=== PATIENT | male | born 1970 | race Caucasian/White ===

== ENCOUNTER 2019-05-20 06:41 | Day surgery (SDC) | payer BC, SELFPAY ==
[2019-05-19 07:43] VITALS: BMI 32.5
--- NOTE | 2019-05-20 07:06 | PM.HPUD ---
H&P update H&P Update: DATE OF SURGERY/PROCEDURE: 05/20/19 DATE H&P PERFORMED: 04/24/19 PLANNED PROCEDURE: Operation Date: 05/20/19 07:30 Proposed Procedures p Colonoscopy(Not Applicable) - Ricki Daly MD Full H&P HPI: PRIMARY INDICATION/DIAGNOSIS FOR SURGICAL PROCEDURE: Family history of colon cancer with diverticulitis PLANNED PROCEDURE: Colonoscopy HPI: Patient was admitted to the hospital couple of months ago with diverticulitis which was managed conservatively. Never had a colonoscopy before. Perinent History: Medical/Surgical History: Medical History (Updated 05/20/19 @ 07:05 by Ricki Daly MD) Diverticulitis (Acute) Family History: Family History (Updated 05/20/19 @ 07:05 by Ricki Daly MD) Other Cancer Family hx of colon cancer Social History: Social History Smoking and tobacco status: never smoked Alcohol intake: never Substance/Drug Use: never Pertinent Exam Findings: PHYSICAL EXAM: alert and oriented x 3 OTHER PERTINENT EXAM FINDINGS: Abdomen: Soft A&P Assessment and plan (1) Diverticulitis: Family history of colon cancer Procedure, risks, benefits and alternatives have been discussed with the patient who wishes to proceed with surgery. Status: Acute Code(s): K57.92 - Diverticulitis of intestine, part unspecified, without perforation or abscess without bleeding
[2019-05-20 07:17] VITALS: BP 133/79; PULSE 70; RESP 18; TEMP 36.7; O2SAT 97
[2019-05-20] MEDS: sodium chloride 0.9% 1,000 ML 30 ML (07:20)
--- NOTE | 2019-05-20 07:46 | ANES.PREANES ---
Pre-Anesthetic Assessment Pre-Anesthetic Assessment: Height/Weight: Height 1.83 m Weight 108.862 kg Temp Pulse Resp BP Pulse Ox 98.1 F 70 18 133/79 97 05/20/19 07:17 05/20/19 07:17 05/20/19 07:17 05/20/19 07:17 05/20/19 07:17 Proposed Procedure: Operation Date: 05/20/19 07:30 Proposed Procedures p Colonoscopy(Not Applicable) - Ricki Daly MD Was Beta Victoriano taken within 24 hours: N/A Last intake: Intake Last Liquid Date 05/19/19 Last Liquid Time 22:00 Last Solid Date 05/18/19 Last Solid Time 18:00 Last Intake: 00:00 Social: Social History: No alcohol and No tobacco Exam: Pre-Anes Outpt Exam: alert, oriented x 3, clear to auscultation bilaterally and regular rate & rhythm Airway: Submandibular: WNL Cervical ROM: WNL MP: 1 Dentition: Full History/ROS: No significant history except as noted and No significant complaints Pulmonary: Pulmonary: None reported CV/HEM: CV/HEM: None reported : : None reported Hepatic: Hepatic: None reported GI: GI: None reported Metabolic: Metabolic: None reported Musc/skel: Musc/skel: None reported Neuropsych: Neuropsych: None reported Anesthetic Plan: ASA status: I Anesthesia: MAC Risk of > 500 ml blood loss (7ml/kg in children): No PFSH Anesthesia PFSH: Medical History (Updated 05/20/19 @ 07:07 by Ricki Daly MD) Diverticulitis (Acute) Surgical History (Updated 05/20/19 @ 07:05 by Ricki Daly MD) Hx of arthroscopy of left knee (Acute) Family History (Updated 05/20/19 @ 07:05 by Ricki Daly MD) Other Cancer Family hx of colon cancer Social History (Updated 05/19/19 @ 07:41 by Erin Huang RN) Smoking and tobacco status: never smoked Alcohol intake: never Substance/Drug Use: never Data Anesthesia Cardiac Studies: No Data to Display
[2019-05-20 08:04] VITALS: BP 120/81; PULSE 75; RESP 16; TEMP 36.1; O2SAT 97
[2019-05-20 08:14] VITALS: BP 108/88; PULSE 71; RESP 18; O2SAT 97
--- NOTE | 2019-05-20 14:43 | ANE.PACU ---
 Inpatient post-anesthesia follow up: Airway intact: Yes Vital signs: Temperature 97.0 F Pulse Rate [Monito r] 71 Respiratory Rate 18 Blood Pressure [Le ft Arm] 108/88 Pulse Oximetry 97 Oxygen Delivery Me thod Room Air Oxygen Flow Rate 3 Fraction of Inspir ed Oxygen Hydration adequate: Yes Nausea and vomiting: No Mental status: Baseline
== END 2019-05-20 08:40 | disposition home or self-care (01) ==
PROVIDERS: Family Provider Family Medicine; Visit Provider Surgery
PROC: 0DJD8ZZ Inspection of Lower Intestinal Tract, Via Natural or Artificial Opening Endoscopic (ICD-10-PCS; CPT 45378; principal; 2019-05-20 07:30)
DX: K57.92 Diverticulitis of intestine, part unspecified, without perforation or abscess without bleeding (principal); Z80.0 Family history of malignant neoplasm of digestive organs; Z87.19 Personal history of other diseases of the digestive system; D12.4 Benign neoplasm of descending colon; K57.30 Diverticulosis of large intestine without perforation or abscess without bleeding; K64.8 Other hemorrhoids
CPT/HCPCS: 12345; 45380; 88305; 96365; J2704; J7030

== ENCOUNTER 2020-07-07 15:46 | Outpatient (CLI) | payer BC, SELFPAY ==
--- NOTE | 2020-07-07 | CT_ITS ---
WS: [id number] CT scan of the abdomen and pelvis with IV contrast. Additional two-dimensional coronal and sagittal r econstruction was performed. 07/07/2020 Clinical Data: HEMATURIA Comparison: None. DLP: 1938.[address] scans at [facility] use at least one of these dose optimization techniques: automat ed exposure control; mA and/or kV adjustment per patient size (includes targeted exams where dose is matched to clinical indication); or iterative reconstruction. Findings: The lower lungs show no nodules, masses or effusions. The liver, spleen, adrenal glands and pancreas are normal. There is a gallstone within the gallbladde r. The kidneys show equal bilateral contrast excretion with no cyst or masses. The abdominal aorta is normal in size with minimal calcification in the wall.. No appendicitis is seen. The stomach and small bowel are unremarkable. There is sigmoid diverticulitis with a probable diverticular abscess. This abscess is contiguous with the bladder and may have penetrated into the bladder. No adenopathy, ascites, mass, obstruction or f ree air is seen. No inguinal hernia is seen. The bones of the lower thorax, lumbar spine, pelvis, and hips are normal. CT/CT abdomen pelvis w con* [id number] Impression: Sigmoid diverticulitis with probable diverticular abscess contiguous with and p ossibly penetrating into the superior aspect of the bladder.
[2020-07-07] MEDS: iohexol 300 mg/mL 100 mL Btl IV (16:07)
== END 2020-07-07 15:47 | disposition home or self-care (01) ==
LOC: RAD 15:51
PROVIDERS: PCP Physician Assistant; Visit Provider Physician Assistant
DX: R31.9 Hematuria, unspecified (principal); K57.32 Diverticulitis of large intestine without perforation or abscess without bleeding
CPT/HCPCS: 74177

== ENCOUNTER → 2020-07-14 11:37 | Day surgery (SDC) | payer BC, SELFPAY ==
[2020-07-14] VITALS (14 sets, daily range): BP systolic 97–134; BP diastolic 56–86; PULSE 63–78; RESP 16–18; TEMP 36.8; O2SAT 96–100; BMI 32.4
[2020-07-14] MEDS: sodium chloride 0.9% 1,000 ML 75 ML IV (12:36)
--- NOTE | 2020-07-14 13:00 | CT_ITS ---
WS: [id number] CT GUIDED DIVERTICULAR ABSCESS ASPIRATION/DRAINAGE CLINICAL INFORMATION: K57.80 - Diverticulitis of intestine, part unspecified, with perforation and ab scess without bleeding COMPARISON: CT July 07, 2020 DLP: 720.91 mGy.cm TECHNIQUE: Recent imaging July 07, 2020 was reviewed. Abscess contacting the bladder has decreased i n size compared to previous examination. Small amount of air in the nondependent portion the bladder suspicious for fistula. This persists on the postdrainage images. The procedure including risk, benefits, and complications were discussed with the patient who agreed to proceed. Using sterile technique, the patient was prepped and draped in the usual sterile fashion. Patient was positioned supine and CT images were obtained through the abdomen. After 1% lidocaine us ing fluoroscopic guidance, a 17-gauge coaxial needle was advanced into the abscess. Approximately 15c cs of bloody purulent fluid was aspirated. Fluid was sent for cultures. Post procedure CT images dem onstrate near resolution of the abscess cavity with residual soft tissue thickening along the bladder . CT/CT drain peritoneum [id number] IMPRESSION: 1. Aspiration of approximately 15 cc bloody purulent fluid from the abscess ca vity which essentially resolved on the postdrainage images. Residual soft tissu e thickening along the dome of the bladder. 2. Suspected fistulous communication with the bladder with a small amount of a ir seen in the nondependent bladder on the pre- and postaspiration images. 3. No immediate complications. Patient was discharged in stable condition.
[2020-07-14 13:14] LABS: INR 0.96 (0.8-1.2)
[2020-07-14] MEDS: midazolam 1 mg/mL INJ 2 mL 2 MG IVP (14:02)
[2020-07-14] MEDS: midazolam 1 mg/mL INJ 2 mL IVP ×2 (14:05→14:11)
[2020-07-14] MEDS: fentaNYL 50 mcg/mL INJ 2mL 25 MCG IVP ×3 (14:06→14:17)
--- NOTE | 2020-07-14 16:32 | PC.NURSE ---
The Doctor changed the dosing for this patient intraprocedurally. The patient received a total of 4 mg versed during the procedure. The Doctor did the same with the fentanyl administration. A total of 125 mcg was given for the procedure. Dayan Arora RN witnessed the administration of versed and fentanyl as stated. Total of 2 mg versed was wasted. Total of 275 mcg fentanyl was wasted.
== END | disposition home or self-care (01) ==
PROVIDERS: PCP Physician Assistant; Visit Provider Radiology Neuroradiology
DX: K57.80 Diverticulitis of intestine, part unspecified, with perforation and abscess without bleeding (principal)
CPT/HCPCS: 49406; 75989; 85610; 87070; 87075; 87077; 87186; 87205; J2250; J3010; J7030

== ENCOUNTER → 2020-07-23 09:41 | Outpatient (BNVA) | payer BC, SELFPAY | PROVIDERS: PCP Physician Assistant; Visit Provider Urology | DX: R39.89 Other symptoms and signs involving the genitourinary system (principal); N32.1 Vesicointestinal fistula; K57.80 Diverticulitis of intestine, part unspecified, with perforation and abscess without bleeding; N30.01 Acute cystitis with hematuria | CPT/HCPCS: 81003 ==

== ENCOUNTER → 2020-07-26 13:50 | Outpatient (BNVA) | payer BC, SELFPAY | PROVIDERS: PCP Physician Assistant; Visit Provider Urology | DX: Z20.822 Contact with and (suspected) exposure to COVID-19 (principal); N32.1 Vesicointestinal fistula | CPT/HCPCS: 87635 ==

== ENCOUNTER 2020-08-02 16:35 | Inpatient (IN) | payer BC, SELFPAY ==
[2020-07-30 09:42] VITALS: BMI 37.3
[2020-08-02] VITALS (21 sets, daily range): BP systolic 108–142; BP diastolic 74–98; PULSE 76–101; RESP 12–25; TEMP 36.1–37.4; O2SAT 94–100
--- NOTE | 2020-08-02 09:31 | SUR.PREOP ---
0930 Pt states unable to drink second bottle of mag citrate due to nausea last night. Dr. Daly at bedside and ordered tap water enema. Approximately 500 mL tap water infused before pt unable to tolerate. Pt up to bedside commode with approx 500 mL clear results out.
--- NOTE | 2020-08-02 09:58 | W.PM.OPSUD ---
Surgery/Procedure H&P Update DATE OF PROCEDURE: August 02, 2020 DATE H&P PERFORMED: 07/09/20 H&P UPDATE INFORMATION: I have reviewed H&P completed within last 30 days, I have examined patient prior to procedure and No changes to prior documentation PREOP DIAGNOSIS: Complicated sigmoid diverticulitis PLANNED PROCEDURE: Operation Date: 08/02/20 11:00 Proposed Procedures p Laparoscopic Sigmoidectomy 70376 N32.1 02549 07660 N32.1(Not Applicable) - Ricki Daly MD s Cystoscopy(Not Applicable) - Yousuf Nice MD s partial Cystectomy(Not Applicable) - Yousuf Nice MD Operation Date: 08/02/20 12:00 Proposed Procedures p Cystoscopy 80445 52945 N32.1(Not Applicable) - Yousuf Nice MD s Partial Cystectomy(Not Applicable) - Yousuf Nice MD
[2020-08-02 10:01] LABS: Basophils # 0.1 10^3/uL (0.0-0.1); Basophils % 0.8 %; Eosinophils # 0.1 10^3/uL (0.0-0.8); Eosinophils % 1.7 %; Hematocrit 50.1 % (42.0-52.0); Hemoglobin 17.2 g/dL (11.7-16.6); Lymphocytes # 2.6 10^3/uL (0.8-4.8); Lymphocytes % 35.1 %; Mean Corpuscular HGB Conc 34.3 g/dL (30.0-36.0); Mean Corpuscular Hemoglobin 31.6 pg (28.0-34.0); Mean Corpuscular Volume 92.1 fL (80-94); Mean Platelet Volume 10.2 fL (7.4-10.4); Monocytes # 0.7 10^3/uL (0.2-0.9); Monocytes % 8.8 %; Neutrophils # 3.97 10^3/uL (1.8-7.7); Neutrophils % 53.2 %; Nucleated Red Blood Cells % 0 %; Platelet Count 278 10^3/cmm (130-400); Red Blood Count 5.44 10^6/uL (4.1-5.3); Red Cell Distribution Width 12.9 % (12.1-15.1); White Blood Count 7.5 10^3/uL (4.0-10.0)
[2020-08-02] MEDS: sodium chloride 0.9% 1,000 ML 30 ML IV (10:01)
--- NOTE | 2020-08-02 10:06 | ANES.PREANE2 ---
Pre-Anesthetic Assessment Pre-Anesthetic Assessment: Height/Weight: Height 1.83 m Weight 124.738 kg Temp Pulse Resp BP Pulse Ox 97.0 F L 92 18 124/84 98 08/02/20 09:08 08/02/20 09:08 08/02/20 09:08 08/02/20 09:08 08/02/20 09:08 Preop Diagnosis: Complicated sigmoid diverticulitis Proposed Procedure: Operation Date: 08/02/20 11:00 Proposed Procedures p Laparoscopic Sigmoidectomy 93142 N32.1 19063 99608 N32.1(Not Applicable) - Ricki Daly MD s Cystoscopy(Not Applicable) - Yousuf Nice MD s partial Cystectomy(Not Applicable) - Yousuf Nice MD Operation Date: 08/02/20 12:00 Proposed Procedures p Cystoscopy 41616 33000 N32.1(Not Applicable) - Yousuf Nice MD s Partial Cystectomy(Not Applicable) - Yousuf Nice MD Familial anesthetic complications: None Was Beta Victoriano taken within 24 hours: N/A Was Clonidine taken within 24 hours: N/A Last intake: Intake Last Liquid Date 08/01/20 Last Liquid Time 22:00 Last Solid Date 08/01/20 Last Solid Time 07:00 Social: Social History: No alcohol and No tobacco Exam: Pre-Anes Outpt Exam: alert, oriented x 3, clear to auscultation bilaterally and regular rate & rhythm Airway: Cervical ROM: WNL MP: 1 Dentition: Full GI: Comments: diverticular perforation Anesthetic Plan: ASA status: 2 Anesthesia: General Risk of > 500 ml blood loss (7ml/kg in children): No Meds/Allergies Current Medications: Current Medications Generic Name Dose Route Start Last Admin Trade Name Freq PRN Reason Stop Dose Admin Sodium Chloride 1,000 mls @ 30 ml s/hr 08/02/20 07:45 08/02/20 10:01 Sodium Chloride 0.9% IV 08/03/20 07:44 30 mls/hr .Q24H ANGEL Administration PFSH Anesthesia PFSH: Medical History (Updated 07/23/20 @ 13:34 by Yousuf Nice MD) [place]-vesical fistula Diverticulitis History of colon polyps Follow-up colonoscopy in 2024 UTI (urinary tract infection) Surgical History Hx of arthroscopy of left knee Status post colonoscopy with polypectomy 05/20/2019: Descending colon: 5 mm sessile polyp removed with cold biopsy forceps Sigmoid colon: Moderate diverticulosis Rectum: Internal hemorrhoids Family History Mother Diabetes Other Cancer Family hx of colon cancer Social History Smoking and tobacco status: never smoked Alcohol intake: never Household members: spouse Marital status: Current occupational status: employed History of recent travel: No Data Anesthesia CBC & Chem 7: 08/02/20 09:50 08/02/20 09:50 Other Labs: Laboratory Results - last 48 hr 08/02/20 09:50 WBC 7.5 RBC 5.44 H Hgb 17.2 H Hct 50.1 MCV 92.1 MCH 31.6 MCHC 34.3 RDW 12.9 Plt Count 278 MPV 10.2 Neut % (Auto) 53.2 Lymph % (Auto) 35.1 [place] % (Auto) 8.8 Eos % (Auto) 1.7 Baso % (Auto) 0.8 Neut # (Auto) 3.97 Lymph # (Auto) 2.6 [place] # (Auto) 0.7 Eos # (Auto) 0.1 Baso # (Auto) 0.1 Nucleated RBC % (auto) 0 Nucleated RBCs # 0.0 Cardiac Studies: No Data to Display
[2020-08-02] MEDS: midazolam 1 mg/mL INJ 2 mL 2 MG IVP (10:11)
[2020-08-02 10:20] LABS: Alanine Aminotransferase 19 U/L (0-41); Albumin Level 3.9 g/dL (3.5-5.2); Alkaline Phosphatase 92 IU/L (40-130); Anion Gap 12.9 (5-19); Aspartate Amino Transferase 22 U/L (0-40); Blood Urea Nitrogen 12 mg/dL (6-20); Calcium 8.8 mg/dL (8.5-10.5); Carbon Dioxide 23 mmol/L (22-29); Chloride 101 mmol/L (98-107); Globulin 4.6 g/dL (1.3-4.6); Glomerular Filtration Rate 70.6 mL/min (90-130); Glucose 111 mg/dL (65-115); Osmolality Calculated 276 mOsm/kg (285-295); Potassium 3.9 mmol/L (3.5-5.1); Sodium 133 mmol/L (136-145); Total Bilirubin 1.3 mg/dL (0.15-1.2); Total Protein 8.5 g/dL (6.6-8.7)
--- NOTE | 2020-08-02 15:35 | PM.OP ---
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 Procedure Done: 1. Partial cystectomy with bladder closure Pathology: Bladder wall in addition to the abscess tissue excised by Dr. Daly Surgeon: Arlet Anesthesia: General Estimated blood loss: See Dr. Daly's note Urine output: Not measured Complications: None Findings: 1. Extensive induration of the posterior peritoneum as well as the bladder wall secondary to fistula formation and adjacent pelvic abscess related to diverticulitis. 2. Portion of the bladder wall anteriorly and at the dome was excised involving the more extensive portions of the severe induration. No evidence of residual fistula after excision of this involved portion of the bladder wall. Condition: stable Disposition: PACU Brief History: Mr. Bashir is a very pleasant 49-year-old white male recently diagnosed with a colovesical fistula and diverticulitis with abscess formation abutting the dome of the bladder. A percutaneous drainage of the abscess was performed with a small amount of fluid obtained. A drain could not be left. Admitted now for partial colectomy, excision of bladder wall involved in the abscess/colovesical fistula. Procedure: The procedure was initiated by Dr. Daly including laparoscopic resection of the bowel involved in the diverticulitis/abscess formation. The abscess had been drained. At this point I became involved in the surgical procedure. Through the same abdominal incision dissection was continued down anteriorly distal to the abscess and the bladder wall was identified. The abscess was then dissected off the bladder. The bladder was entered allowing more clear demarcation of the involved bladder wall. Circumferential excision of the bladder wall involving this extensive area was performed down to healthy mucosa. There was still quite a bit of induration of the bladder wall though extrinsic to the mucosa. The bladder was irrigated. There was no clots or debris noted. Further dissection of the indurated abscess wall was then performed after the boundaries of the bladder excision were defined. Most of the affected tissues were excised and sent for pathologic evaluation. The partial cystectomy site was then closed utilizing 2-3 layers with 3-0 Vicryl for the mucosal muscularis layer and 2-0 Vicryl running sutures for the muscularis/adventitial layer. The closure did involve a lot of inflammatory tissue but appeared to be adequate. Prior to completion of the general surgery portion of the procedure Dr. Daly was able to close with some of the peritoneal/properitoneal fat as well as placement of some omental fat in this area. A drain was recommended as well. After completion of the bladder closure the procedure was turned over to Dr. Daly for completion of his portion. Please see his dictation under separate cover.
[2020-08-02] MEDS: fentaNYL 50 mcg/mL INJ 2mL IVP (15:38)
--- NOTE | 2020-08-02 15:43 | PM.OP ---
Operative Report Date of procedure: August 02, 2020 Pre-op Diagnosis: Perforated sigmoid diverticulitis with colovesical fistula Symptomatic 2 cm umbilical hernia Post-op Findings: 1. Perforated sigmoid diverticulitis with colovesical fistula 2. Intra-abdominal abscess 3. 2 cm umbilical hernia Procedure Done: 1. Laparoscopic takedown of splenic flexure 2. Laparoscopic sigmoid colectomy with stapled 29 mm EEA anastomosis 3. Proctoscopy 4. Open repair of umbilical hernia 5. Excision of intra-abdominal abscess 6. Partial cystectomy -refer to Dr. Nice's note Specimens removed/disposition: 1. Sigmoid colon, stapled end distal 2. Proximal anastomosis donut 3. Distal anastomosis donut 4. Bladder wall 5. Intra-abdominal abscesses Surgeon: Ricki Daly Anesthesia: General Estimated blood loss (mL): 100 IV fluids (mL): 1,700 Urine output (mL): 100 Condition: stable Disposition: PACU Procedure: The patient was taken to the operating room, intubated under general anesthesia after IV antibiotic had been administered. The patient was placed in modified lithotomy position with shoulder support and the James catheter was placed. The rectum was irrigated with diluted Betadine using red rubber catheter. The abdomen and the perineum was prepped and draped in a sterile manner. Using a 15 blade, a midline infraumbilical incision was made and using open Dunlap technique the peritoneal cavity was entered through the 2 cm umbilical hernia, 12 mm port was placed and 15 mm of pneumoperitoneum was created. A 10 mm 30? scope was then introduced. 5 mm ports were placed in the left lower quadrant and in the right upper quadrant under direct visualization in the midclavicular line and and a 12 mm port was placed in the right lower quadrant. Examination of the colon revealed a a inflammatory phlegmon in the sigmoid colon adherent to the anterior abdominal wall. The patient was placed in steep Trendelenburg position and rotated to the right in order to place a small bowel loops in the right upper quadrant. The transverse colon was retracted superiorly. The inferior mesenteric vein was identified and adjacent ligament of Treitz and the retroperitoneal plane was entered medial to the IMV and mobilization of the splenic flexure as well as the descending colon was performed to the retroperitoneal avascular plane. The phrenocolic and renal colic ligaments were divided using LigaSure and the anterior leaflet of the omentum was divided the distal one third of the transverse colon to enter the lesser sac and mobilized the splenic flexure. The line of Toldt was opened along the descending colon to mobilize it completely. There were adhesions of the sigmoid colon to the abdominal wall which were taken down. The thickened sigmoid mesocolon was divided from the junction of the descending colon up to the peritoneal reflection on the rectum. There were multiple arterial bleeders which were controlled with LigaSure staying close to the sigmoid colon. 2 loads of 45 mm blue load [place] NERI stapler was introduced through the right lower quadrant port to divide the rectum distally. Examination of suprapubic area revealed take care and abscess adherent to the abdominal wall. The posterior rectus sheath was opened and the abdominal abscess was dissected free from the rectus muscle up to the dome of the bladder. 20 cc of saline mixed with 20 cc of Exparel mixed with 20cc of 0.5% Marcaine was infiltrated bilaterally in the midclavicular line for TAP block under laparoscopic visualization. At this point it appeared that the descending colon reached up to the rectum and 7 suprapubic incision was made, subcutaneous tissue, linea alba and peritoneum divided using electrocautery, pneumoperitoneum was released and a wound protector was placed and the divided sigmoid colon was exteriorized.A noncrushing bowel clamps were placed in the descending colon and an Autosuture pursestring was placed and the colon was divided and the specimen removed from the operating field. Serial anal dilators were used and it was decided to proceed with the 29 mm EEA stapler. The anvil of the EEA stapler was introduced into the descending colon and tied down. Dr. Nice joined me at this part of the case and the previously freed up abdominal wall abscess was dissected from the dome of the bladder and sent to pathology. The dome of the bladder was opened and colovesical fistula identified. Please refer to his notes for further details The colon was introduced into the peritoneal cavity and the pneumoperitoneum was recreated. The anus was digitally dilated and the EEA stapler was introduced through the anal canal and the trocar passed posterior to the previously created staple line and attached to the anvil after ensuring that there was no twisting of the mesentery. The EEA stapler was fired to create the stapled 29 mm end-to-end anastomosis and 2 intact doughnuts were retrieved which were sent as proximal margin and distal margin. A colonoscope was introduced and passed beyond the anastomosis after submerging the anastomosis under saline in the pelvis. The air leak test was negative. There was no significant bleeding noted from the staple line. The colonoscope was withdrawn. All 4 ports were removed under direct visualization and the fascia the midline was closed using #1 loop PDS. The fascia of the right lower quadrant port was closed using [id number] 0 Vicryl suture. The hernia sac at the umbilicus was excised and the hernia defect measured about 2 cm. This was closed with [id number] 0 Vicryl suture. A 10 flat ASHLEY drain introduced through the left lower quadrant port was placed anterior to the bladder as extending into the pelvis and attached to bulb suction and sutured with 3-0 Prolene suture. The skin was closed with jazmine and covered with sterile dressings. The patient was subsequently extubated and transferred to recovery room with a James catheter in place.
[2020-08-02] MEDS: HYDROmorphone 1 mg/mL INJ 1 mL 0.5 MG IVP (15:52)
--- NOTE | 2020-08-02 15:59 | SUR.PHASEI ---
PT AWAKE ALERT C/O OF PAIN OF 9 EARLIER SEE MEDS GIVEN PT DOZING OFF AND ON NOW, AWAKES EASILY, VSS ABD SOFT WITH 4 SITES WITH OPSITE, AND ONE SITE WITH DRAIN SPONGE, WITH DRAIN COMPRESSED. SMALL AMT OF PINK CLEAR DRAINAGE NOTED., PENA TO DD WITH RED CLEAR URINE NOTED TO TUBING AND BAT, NO CLOTS NOTED STATLOCK TO RT THIGH, BILAT SCDS ON .
--- NOTE | 2020-08-02 16:13 | SUR.PHASEI ---
1605 ATTEMPTING TO GIVE REPORT TO FLOOR PT DOZING OFF AND ON DRESSING TO ABD 5 SITES UNCHANGED URINE LT RED CLEAR TO TUBING AND BAG.
--- NOTE | 2020-08-02 17:04 | ANE.PACU2 ---
Inpatient post-anesthesia follow up: Airway intact: Yes Vital signs: Temperature 97.5 F Pulse Rate 88 Respiratory Rate 17 Blood Pressure 136/85 Pulse Oximetry 94 Oxygen Delivery Me thod Room Air Oxygen Flow Rate 6 Fraction of Inspir ed Oxygen Hydration adequate: Yes Nausea and vomiting: No Pain level: 3 Mental status: Baseline
[2020-08-02] MEDS: famotidine 20 mg/2 mL INJ IVP (17:41)
[2020-08-02] MEDS: sennosides-docusate Tablet 1 TAB PO (17:41)
[2020-08-02] MEDS: D5-NS 0.45% + KCL 20 mEq 20 MEQ/1,000 ML BAG 100 MEQ IV (17:43)
[2020-08-02] MEDS: morphine 4 mg/mL SDV 1 mL 3 MG IVP (17:43)
[2020-08-02] MEDS: ondansetron 2 mg/ML SDV 2 mL 4 MG IVP (18:08)
[2020-08-02] MEDS: HYDROcodone-acetaminophen 5-325 mg Tablet 1 TAB PO (21:40)
[2020-08-03] VITALS (8 sets, daily range): BP systolic 123–130; BP diastolic 78–90; PULSE 88–114; RESP 17–18; TEMP 36.7–37.3; O2SAT 94–97
[2020-08-03] MEDS: D5-NS 0.45% + KCL 20 mEq 20 MEQ/1,000 ML BAG 100 MEQ IV (03:06)
[2020-08-03 03:11] LABS: Basophils % 0.1 %; Hematocrit 43.5 % (42.0-52.0); Hemoglobin 14.6 g/dL (11.7-16.6); Lymphocytes # 1.8 10^3/uL (0.8-4.8); Lymphocytes % 12.6 %; Mean Corpuscular HGB Conc 33.6 g/dL (30.0-36.0); Mean Corpuscular Hemoglobin 31.3 pg (28.0-34.0); Mean Corpuscular Volume 93.1 fL (80-94); Mean Platelet Volume 10.6 fL (7.4-10.4); Monocytes # 1.1 10^3/uL (0.2-0.9); Monocytes % 7.7 %; Neutrophils # 11.05 10^3/uL (1.8-7.7); Nucleated Red Blood Cells % 0 %; Platelet Count 274 10^3/cmm (130-400); Red Blood Count 4.67 10^6/uL (4.1-5.3)
[2020-08-03 03:31] LABS: Anion Gap 13.8 (5-19); Blood Urea Nitrogen 14 mg/dL (6-20); Calcium 8.1 mg/dL (8.5-10.5); Carbon Dioxide 22 mmol/L (22-29); Chloride 103 mmol/L (98-107); Glomerular Filtration Rate 70.6 mL/min (90-130); Glucose 211 mg/dL (65-115); Osmolality Calculated 285 mOsm/kg (285-295); Potassium 4.8 mmol/L (3.5-5.1); Sodium 134 mmol/L (136-145)
[2020-08-03] MEDS: famotidine 20 mg/2 mL INJ IVP ×2 (04:52→17:21)
[2020-08-03] MEDS: HYDROcodone-acetaminophen 5-325 mg Tablet 1 TAB PO (04:55)
--- NOTE | 2020-08-03 08:08 | PC.NURSE ---
patient rates pain to abd 6/10, patient refuses pain medication at this time.
[2020-08-03] MEDS: sennosides-docusate Tablet 1 TAB PO ×2 (08:38→17:21)
[2020-08-03] MEDS: enoxaparin 40 mg/0.4 mL Syringe SUBCUT (08:38)
--- NOTE | 2020-08-03 09:49 | P.PN_ITS ---
Subjective Subjective: Interval history: Patient overall doing well, denies any nausea or vomiting, no flatus or BM, pain is reasonably controlled Vitals/I&O/Wt Last Vital Signs Temp 98.9 F 08/03/20 07:43 Pulse 88 08/03/20 07:43 Resp 17 08/03/20 07:43 BP 123/84 08/03/20 07:43 Pulse Ox 96 08/03/20 07:43 08/02/20 08/03/20 08/03/20 22:59 06:59 14:59 Intake Total 1810 / 2848.333 988.333 / 2848.333 Output Total 520 / 1050 530 / 1050 Balance 1290 / 1798.333 458.333 / 1798.333 Physical Exam Narrative: EXAM NARRATIVE: Abdomen: Soft, tender, mildly distended, dressings mildly saturated, James catheter in place Urinary Catheter Management^: James: Cath Placed During This Visit: yes Urinary Catheter Date of Insertion: 08/02/20 Urinary Catheter Time of Insertion: 10:55 Data : 08/03/20 02:43 08/03/20 02:43 A&P Assessment and plan (1) Status post laparoscopic-assisted sigmoidectomy: Status post laparoscopic sigmoid colectomy for colovesical fistula and excision of intra-abdominal abscess with postop ileus Decrease IV fluids to 30 cc/h Start clear liquid diet Ambulate ad geovany. Daily labs Continue IV Kefzol and Flagyl due to intra-abdominal abscess, colovesical fistula and significant inflammation noted during surgery Incentive spirometry, wean to room air Pepcid for GI prophylaxis Lovenox SCD for DVT prophylaxis Patient will need greater than 2 nights of inpatient stay to ensure resolution of ileus and to rule out any postop complications. Status: Acute (2) H/O partial cystectomy: James to stay in for 2 weeks until follow-up with Dr. Nice Change to leg bag Status: Acute Attestations Medical Necessity Statement*: Status post sigmoid colectomy with postop ileus Coding Level of Care Code Acute Water Pollution Scientist for g Fwd Diagnoses Status post laparoscopic-assisted sigmoidectomy Z90.49 H/O partial cystectomy Z90.6
[2020-08-03] MEDS: metroNIDAZOLE IV 500 MG/100 ML PREMIX 100 MG IV ×2 (11:27→17:28)
[2020-08-03] MEDS: D5-NS 0.45% + KCL 20 mEq 20 MEQ/1,000 ML BAG 30 MEQ IV (17:26)
--- NOTE | 2020-08-03 18:16 | PC.NURSE ---
patient is not passing gas yet
[2020-08-03] MEDS: ondansetron 2 mg/ML SDV 2 mL 4 MG IVP (22:14)
[2020-08-03] MEDS: promethazine 25 mg/mL SDV 1 mL 12.5 MG IM (23:18)
[2020-08-04] VITALS (8 sets, daily range): BP systolic 124–136; BP diastolic 77–89; PULSE 87–124; RESP 18; TEMP 36.5–36.9; O2SAT 95–97
--- NOTE | 2020-08-04 00:16 | PC.RESP ---
Nausea Notified Dr. Daly of patients persistent nausea after administration of zofran. Order received for IM Promethazine 12.5mg q8 hours prn.
[2020-08-04] MEDS: HYDROcodone-acetaminophen 5-325 mg Tablet 1 TAB PO ×2 (01:46→21:36)
[2020-08-04] MEDS: metroNIDAZOLE IV 500 MG/100 ML PREMIX 100 MG IV ×3 (01:47→17:21)
[2020-08-04 02:42] LABS: Basophils % 0.3 %; Hematocrit 43.3 % (42.0-52.0); Hemoglobin 14.5 g/dL (11.7-16.6); Lymphocytes # 2.2 10^3/uL (0.8-4.8); Lymphocytes % 15.1 %; Mean Corpuscular HGB Conc 33.5 g/dL (30.0-36.0); Mean Corpuscular Volume 92.5 fL (80-94); Mean Platelet Volume 10.6 fL (7.4-10.4); Monocytes # 1.3 10^3/uL (0.2-0.9); Monocytes % 8.7 %; Neutrophils # 11.24 10^3/uL (1.8-7.7); Neutrophils % 75.5 %; Nucleated Red Blood Cells % 0 %; Platelet Count 250 10^3/cmm (130-400); Red Blood Count 4.68 10^6/uL (4.1-5.3); Red Cell Distribution Width 12.9 % (12.1-15.1); White Blood Count 14.9 10^3/uL (4.0-10.0)
[2020-08-04] MEDS: ondansetron 2 mg/ML SDV 2 mL 4 MG IVP (02:53)
[2020-08-04 03:01] LABS: Anion Gap 12.9 (5-19); Blood Urea Nitrogen 13 mg/dL (6-20); Calcium 8.1 mg/dL (8.5-10.5); Carbon Dioxide 23 mmol/L (22-29); Chloride 100 mmol/L (98-107); Creatinine Clr Calc Pharmacy 119.2293; Glomerular Filtration Rate 78.8 mL/min (90-130); Glucose 148 mg/dL (65-115); Osmolality Calculated 277 mOsm/kg (285-295); Potassium 3.9 mmol/L (3.5-5.1); Sodium 132 mmol/L (136-145)
[2020-08-04] MEDS: morphine 4 mg/mL SDV 1 mL 3 MG IVP (04:46)
[2020-08-04] MEDS: famotidine 20 mg/2 mL INJ IVP ×2 (04:48→17:21)
[2020-08-04] MEDS: sennosides-docusate Tablet 1 TAB PO ×2 (08:54→17:21)
[2020-08-04] MEDS: enoxaparin 40 mg/0.4 mL Syringe SUBCUT (08:54)
--- NOTE | 2020-08-04 09:33 | PC.NURSE ---
ROUNDING WITH DR SAMUELS PT UP IN CHAIR COMPLAINING OF CRAMPING PAIN - DR SAMUELS NOTIFIED PER THIS NURSE OF INCREASED HEART RATE WHEN UP - ORDERS REC'D
[2020-08-04] MEDS: sodium chloride 0.9% 500 ML IV ×2 (10:20→11:01)
--- NOTE | 2020-08-04 10:50 | PM.PN ---
Subjective Subjective: Interval history: Patient had cramping abdominal pain last night, no flatus or BM. No vomiting, had some nausea but has been belching a lot. Patient has been tachycardic when he ambulates but otherwise stable. He has been afebrile Vitals/I&O/Wt Last Vital Signs Temp 98.5 F 08/04/20 08:00 Pulse 124 H 08/04/20 08:00 Resp 18 08/04/20 08:00 BP 136/86 08/04/20 08:00 Pulse Ox 97 08/04/20 08:00 08/03/20 08/04/20 08/04/20 22:59 06:59 14:59 Intake Total 311.667 / 2170.000 150 / 2170.000 Output Total 520 / 1295 450 / 1295 150 / 150 Balance -208.333 / 875.000 -300 / 875.000 -150 / -150 Physical Exam Narrative: EXAM NARRATIVE: Abdomen: Soft, distended, minimally tender, dressings mildly saturated, ASHLEY drain is serosanguineous James: Dark urine Urinary Catheter Management^: James: Cath Placed During This Visit: yes Urinary Catheter Date of Insertion: 08/02/20 Urinary Catheter Time of Insertion: 10:55 Data : 08/04/20 02:12 08/04/20 02:12 A&P Assessment and plan (1) Status post laparoscopic-assisted sigmoidectomy: Status post laparoscopic sigmoid colectomy for colovesical fistula and excision of intra-abdominal abscess with postop ileus Increase IV fluids 200 cc/h after 5 cc bolus Start clear liquid diet, limit oral intake Ambulate ad geovany. Daily labs Continue IV Kefzol and Flagyl due to intra-abdominal abscess, colovesical fistula and significant inflammation noted during surgery Incentive spirometry, wean to room air Pepcid for GI prophylaxis Lovenox SCD for DVT prophylaxis Patient will need greater than 2 nights of inpatient stay to ensure resolution of ileus and to rule out any postop complications. Status: Acute (2) H/O partial cystectomy: James to stay in for 2 weeks until follow-up with Dr. 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
[2020-08-04] MEDS: D5-NS 0.45% + KCL 20 mEq 20 MEQ/1,000 ML BAG 100 MEQ IV (17:21)
--- NOTE | 2020-08-04 17:54 | PC.NURSE ---
END OF SHIFT SUMMARY CURRENTLY RESTING IN BED AFTER SPENDING MOST OF THE DAY IN THE CHAIR - PT AMBULATED APPROX 10 LAPS - ESAU WELL - STATES HE DOES FEEL BETTER THAN THIS AM - IV REMAINS PATENT TO RIGHT ARM VIA PUMP - ABD JANICE WITH [facility] INTACT/CLEAN/DRY - ASHLEY NOTED TO HAVE DRAINAGE SPONGE TO SITE WITH APPROX 150 ML OUT FOR THIS NURSE SHIFT X1 BOLUS GIVEN THIS AM - PENA WITH APPROX 250 DARK URINE NOTED - DR SAMUELS ON FLOOR AND AWARE - BLE SCD'S IN PLACE - PAIN HAS BEEN WELL CONTROLLED THROUGHOUT SHIFT - PT UNDERSTANDS TO PROCEED SLOWLY WITH CLEAR LIQUID DIET -
[2020-08-05] VITALS: BP 110/69; PULSE 84; RESP 18; TEMP 36.9; O2SAT 97
[2020-08-05 02:55] LABS: Basophils # 0.1 10^3/uL (0.0-0.1); Basophils % 0.5 %; Eosinophils % 0.3 %; Hematocrit 35.2 % (42.0-52.0); Hemoglobin 11.9 g/dL (11.7-16.6); Lymphocytes # 2.9 10^3/uL (0.8-4.8); Lymphocytes % 26.4 %; Mean Corpuscular HGB Conc 33.8 g/dL (30.0-36.0); Mean Corpuscular Hemoglobin 31.2 pg (28.0-34.0); Mean Corpuscular Volume 92.4 fL (80-94); Mean Platelet Volume 10.3 fL (7.4-10.4); Monocytes # 1.1 10^3/uL (0.2-0.9); Monocytes % 10.1 %; Neutrophils # 6.91 10^3/uL (1.8-7.7); Neutrophils % 62.3 %; Nucleated Red Blood Cells % 0 %; Platelet Count 210 10^3/cmm (130-400); Red Blood Count 3.81 10^6/uL (4.1-5.3); Red Cell Distribution Width 13.1 % (12.1-15.1); White Blood Count 11.1 10^3/uL (4.0-10.0)
[2020-08-05 03:20] LABS: Blood Urea Nitrogen 15 mg/dL (6-20); Calcium 7.8 mg/dL (8.5-10.5); Carbon Dioxide 26 mmol/L (22-29); Chloride 103 mmol/L (98-107); Glucose 125 mg/dL (65-115); Osmolality Calculated 282 mOsm/kg (285-295); Sodium 135 mmol/L (136-145)
[2020-08-05] MEDS: metroNIDAZOLE IV 500 MG/100 ML PREMIX 100 MG IV ×3 (03:55→18:07)
[2020-08-05 04:00] VITALS: BP 107/70; PULSE 76; RESP 18; TEMP 36.6; O2SAT 98
[2020-08-05] MEDS: famotidine 20 mg/2 mL INJ IVP ×2 (06:02→18:08)
[2020-08-05 08:00] VITALS: BP 122/81; PULSE 89; RESP 17; TEMP 36.8; O2SAT 98
[2020-08-05] MEDS: sennosides-docusate Tablet 1 TAB PO ×2 (08:14→18:08)
[2020-08-05] MEDS: enoxaparin 40 mg/0.4 mL Syringe SUBCUT (08:14)
--- NOTE | 2020-08-05 09:08 | P.PN_ITS ---
Subjective Subjective: Interval history: She had a bowel movement today and passing flatus, no nausea or vomiting, pain is well controlled Vitals/I&O/Wt Last Vital Signs Temp 98.2 F 08/05/20 08:00 Pulse 89 08/05/20 08:00 Resp 17 08/05/20 08:00 BP 122/81 08/05/20 08:00 Pulse Ox 98 08/05/20 08:00 08/04/20 08/05/20 08/05/20 22:59 06:59 14:59 Intake Total 650 / 3391.667 2150 / 3391.667 480 / 480 Output Total 280 / 1030 600 / 1030 100 / 100 Balance 370 / 2361.667 1550 / 2361.667 380 / 380 Physical Exam Narrative: EXAM NARRATIVE: Abdomen: Soft, minimally distended, minimally tender, incisions clean dry and intact, ASHLEY drain output is serosanguineous Urinary Catheter Management^: James: Cath Placed During This Visit: yes Urinary Catheter Date of Insertion: 08/02/20 Urinary Catheter Time of Insertion: 10:55 Data : 08/05/20 02:29 08/05/20 02:29 A&P Assessment and plan (1) Status post laparoscopic-assisted sigmoidectomy: Status post laparoscopic sigmoid colectomy for colovesical fistula and excision of intra-abdominal abscess with postop ileus DC IV fluids Advance to full liquid diet Ambulate ad geovany. Daily labs Continue IV Kefzol and Flagyl due to intra-abdominal abscess, colovesical fistula and significant inflammation noted during surgery Incentive spirometry, wean to room air Pepcid for GI prophylaxis Lovenox SCD for DVT prophylaxis Patient will need greater than 2 nights of inpatient stay to ensure resolution of ileus and to rule out any postop complications, plan for discharge tomorrow. Status: Acute (2) H/O partial cystectomy: James to stay in for 2 weeks until follow-up with Dr. 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
[2020-08-05] MEDS: HYDROcodone-acetaminophen 5-325 mg Tablet 1 TAB PO ×2 (10:17→18:07)
[2020-08-05 11:57] VITALS: BP 115/78; PULSE 88; RESP 18; TEMP 36.6; O2SAT 98
[2020-08-05 15:57] VITALS: BP 119/82; PULSE 87; RESP 17; TEMP 37.1; O2SAT 98
[2020-08-05 19:24] VITALS: BP 109/69; PULSE 83; RESP 18; TEMP 36.7; O2SAT 96
[2020-08-06] VITALS (7 sets, daily range): BP systolic 105–122; BP diastolic 67–79; PULSE 76–91; RESP 17–20; TEMP 36.4–37; O2SAT 99–100
[2020-08-06] MEDS: metroNIDAZOLE IV 500 MG/100 ML PREMIX 100 MG IV ×2 (04:05→09:02)
[2020-08-06] MEDS: famotidine 20 mg/2 mL INJ IVP (05:02)
[2020-08-06] MEDS: sennosides-docusate Tablet 1 TAB PO (08:55)
[2020-08-06] MEDS: enoxaparin 40 mg/0.4 mL Syringe SUBCUT (08:55)
--- NOTE | 2020-08-06 16:28 | P.PN_ITS ---
Subjective Subjective: Interval history: Patient tolerating full liquid diet, multiple bowel movements, no nausea or vomiting Vitals/I&O/Wt Last Vital Signs Temp 98.1 F 08/06/20 16:00 Pulse 83 08/06/20 16:00 Resp 17 08/06/20 16:00 BP 122/79 08/06/20 16:00 Pulse Ox 99 08/06/20 16:00 08/06/20 08/06/20 08/06/20 06:59 14:59 22:59 Intake Total 210 / 1230 150 / 150 Output Total 415 / 695 40 / 165 125 / 165 Balance -205 / 535 110 / -15 -125 / -15 Physical Exam Narrative: EXAM NARRATIVE: Abdomen: Soft, nondistended, minimally tender, incisions healing well, ASHLEY drain output is serosanguineous which was discontinued Urinary Catheter Management^: James: Cath Placed During This Visit: yes Urinary Catheter Date of Insertion: 08/02/20 Urinary Catheter Time of Insertion: 10:55 Data : 08/05/20 02:29 08/05/20 02:29 A&P Assessment and plan (1) Status post laparoscopic-assisted sigmoidectomy: Status post laparoscopic sigmoid colectomy for colovesical fistula and excision of intra-abdominal abscess with postop ileus which has resolved DC home today Status: Acute (2) H/O partial cystectomy: James to stay in for 2 weeks until follow-up with Dr. 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
--- NOTE | 2020-08-06 16:30 | P.DS_ITS ---
Discharge Providers Date of Admission: 08/02/20 16:35 Date of Discharge: August 06, 2020 Attending Provider at Admission: Ricki Daly MD Attending Provider at Discharge: Ricki Daly MD Primary Care Provider: Ivanna Henson Diagnoses at Discharge Discharge Diagnosis (1) Status post laparoscopic-assisted sigmoidectomy: Status: Acute (2) H/O partial cystectomy: Status: Acute Reason for Visit Reason for Visit: Vesicointestinal fistula Hospital Course Hospital Course This is a 49-year-old male who underwent laparoscopic-assisted sigmoid colectomy with partial cystectomy for colovesical fistula. By postop day 2 patient had return of bowel function and by day 4 he had regular bowel movements. At time of discharge he was tolerating a liquid diet, ambulating and pain controlled with oral pain medications. His vital signs are stable and his incision is clean dry and intact. His ASHLEY drain has been discontinued and he had a James catheter which was to be left in for couple of weeks until follow-up with Dr. Sachi pace Physical Exam Urinary Catheter Management^: James: Cath Placed During This Visit: yes Urinary Catheter Date of Insertion: 08/02/20 Urinary Catheter Time of Insertion: 10:55 Discharge Data Data Completed and Pending: Pending at discharge Category Date Time Status Pathology: Surgic al [PTH] Routine Pth 08/02/20 15:33 Received Vitals: Last Vital Signs Temp 98.1 F 08/06/20 16:00 Pulse 83 08/06/20 16:00 Resp 17 08/06/20 16:00 BP 122/79 08/06/20 16:00 Pulse Ox 99 08/06/20 16:00 Discharge Plan Discharge Condition: Stable Prescriptions: New hydrocodone-acetaminophen 5-325 mg tablet 1 tab PO Q6H PRN (Reason: pain) Qty: 20 RF: 0 levofloxacin 750 mg tablet 750 mg PO DAILY 5 Days RF: 0 metronidazole [Flagyl] 500 mg tablet 500 mg PO Q8H 5 Days Qty: 15 RF: 0 ondansetron HCl [Zofran] 4 mg tablet 4 mg PO Q6H PRN (Reason: nausea and vomiting) Qty: 20 RF: 0 sennosides-docusate sodium [Senna with Docusate Sodium] 8.6-50 mg tablet 1 tab-cap PO BID Qty: 30 RF: 0 Discontinued erythromycin 500 mg tablet 500 mg PO DAILY Qty: 3 RF: 0 neomycin 500 mg tablet 1 g PO DAILY Qty: 6 RF: 0 levofloxacin 750 mg tablet 750 mg PO Q24H 10 Days Qty: 14 RF: 0 metronidazole [Flagyl] 500 mg tablet 500 mg PO Q8H 14 Days Qty: 42 RF: 0 Discharge Orders: Discharge Order (Routine); Ordered 08/06/20 Ordered By: Ricki Daly Referrals: Yousuf Nice MD [Physician] - 2 weeks (s/p partial cystectomy) Ricki Daly MD [Physician] - 08/17/20 Discharge Diet: GI Soft Discharge Activity: Resume usual activity Activity Restrictions/Additional Instructions: 1. Up and walking as tolerated. 2. Ok to shower in 48 hours after surgery. 3. Keep incision clean and dry 4. Do not lift more than 10 pounds. 5. Do not operate heavy machinery or drive while using pain medications. 6. Advised to return to ER or contact my office if there are any signs of infection like, increasing pain, fevers, chills, redness or drainage of pus. Discharge Attestations Time Spent in Discharge Care*: less than 30 min Quality Metrics Clinical Quality Measures During this hospital stay, did patient experience: None Coding Level of Care Code Acute Chg FW DC note Diagnoses Status post laparoscopic-assisted sigmoidectomy Z90.49 H/O partial cystectomy Z90.6
== END 2020-08-06 17:30 | disposition home or self-care (01) | DRG 330 ==
LOC: MEDSURG 19:07
PROVIDERS: Urology; Admitting Provider Surgery; PCP Physician Assistant; Visit Provider Surgery
PROC: 0DTN4ZZ Resection of Sigmoid Colon, Percutaneous Endoscopic Approach (ICD-10-PCS; CPT 44204; principal; 2020-08-02 10:40)
PROC: 0TBB4ZZ Excision of Bladder, Percutaneous Endoscopic Approach (ICD-10-PCS; 2020-08-02 10:40)
DX: K57.20 Diverticulitis of large intestine with perforation and abscess without bleeding (principal); N32.1 Vesicointestinal fistula; Z87.440 Personal history of urinary (tract) infections; K42.9 Umbilical hernia without obstruction or gangrene
CPT/HCPCS: 36415; 80048; 80053; 85025; 88304; 88305; 88309; 96372; 96374; 97116; 97161; C9290; J0690; J1100; J1170; J1650; J2250; J2270; J2405; J2550; J2704; J2710; J3010; J3490; J7030; J7040; S0030

== ENCOUNTER 2020-08-09 16:13 | Emergency (ER) | payer BC, SELFPAY ==
[2020-08-09 15:30] VITALS: BP 138/83; PULSE 75; RESP 16; TEMP 36.5; O2SAT 100; BMI 32.9
--- NOTE | 2020-08-09 15:38 | ECG_ITS ---
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 Measurements Intervals [place] Rate: 75 P: 68 MO: 161 QRS: -25 QRSD: 89 T: 31 QT: 394 QTc: 441 Interpretive Statements SINUS RHYTHM BORDERLINE LEFT AXIS DEVIATION [QRS AXIS < -20] POSSIBLE RIGHT VENTRICULAR CONDUCTION DELAY [RSR (QR) IN V1/V2] Compared to ECG 01/11/2019 02:26:43 T-wave abnormality no longer present Electronically Signed On 08-10-2020 1:13:03 CDT by Giovany Bravo M.D. [email or web address]
--- NOTE | 2020-08-09 15:38 | ED_ITS ---
Documented by User: Preston Love DO 08/10/20 06:02 HPI - Chest Pain General: Chief Complaint: Chest Pain Stated Complaint: chest pain Time Seen by Provider: 08/09/20 18:08 History of Present Illness: HPI narrative: 49-year-old male who recently underwent a sigmoid colon resection. He had had diverticulitis a couple of times and developed a rectovesicular fistula. Procedure was done by Dr. Daly and Dr. Nice. He has indwelling James in place. Today he began having episode of chest pain went into the epigastric area not radiate into his neck or arms. It did not cause him to be particularly short of breath other than it was painful when he took a deep breath. He is not having any pain now. He has no known history of coronary artery disease. He is not particularly short of breath while at rest. On arrival here he is neither tachycardic nor hypoxic on room air. MD complaint: chest discomfort Onset (ago): minute(s) Timing of current episode: episodic Prior episodes: No Onset: during rest Pain location: left chest Pain radiation: other (Epigastric) Severity: moderate Quality: aching Relieving factors: nothing Exacerbating factors: inspiration Associated symptoms: Deny abdominal pain, diaphoresis, dyspnea, fever(s), leg edema, nausea, palpitations, sense of impending doom, syncope or vomiting Treatment prior to arrival: none Review of Systems Const: Denies: fever(s) or diaphoresis ENMT: Denies: throat pain, ear or mastoid pain, nasal discharge or nasal conge stion Card: Denies: palpitations or syncope Resp: Denies: dyspnea GI: Denies: abdominal pain, nausea or vomiting : Denies: flank pain, dysuria, urinary frequency or urinary urgency Skin/Breast: Denies: rash or pruritus PFSH ED PFSH: Medical History [place]-vesical fistula Diverticulitis History of colon polyps Follow-up colonoscopy in 2024 UTI (urinary tract infection) Surgical History H/O partial cystectomy (08/02/20) Hx of arthroscopy of left knee Status post colonoscopy with polypectomy 05/20/2019: Descending colon: 5 mm sessile polyp removed with cold biopsy forceps Sigmoid colon: Moderate diverticulosis Rectum: Internal hemorrhoids Status post laparoscopic-assisted sigmoidectomy (08/02/20) Family History Mother Diabetes Other Cancer Family hx of colon cancer Social History Smoking and tobacco status: never smoked Alcohol intake: never Household members: spouse Marital status: Current occupational status: employed History of recent travel: No Physical Exam Const: COMMON NORMALS: no acute distress GENERAL APPEARANCE: cooperative and comfortable ORIENTATION/CONSCIOUSNESS: Yes awake, Yes oriented to person, Yes oriented to place and Yes oriented to time HENMT: COMMON NORMALS: normocephalic, atraumatic and hearing grossly normal bilaterally HEAD & SCALP: normocephalic and atraumatic Neck/C-Spine: COMMON NORMALS: no JVD Resp: COMMON NORMALS: normal respiratory effort, No retractions, No use of accessory muscles and clear to auscultation bilaterally AUSCULTATION: clear to auscultation bilaterally Cardio: COMMON NORMALS: no JVD, regular rate, regular rhythm and No murmurs present (Cardio) RATE: regular rate RHYTHM: regular rhythm GI: COMMON NORMALS: Soft to palpation and No hepatosplenomegaly present AUSCULTATION: Yes normoactive bowel sounds PALPATION: Yes Soft to palpation, No Tenderness to palpation present (GI), No Guarding due to palpation present (GI) and Yes No hepatosplenomegaly present Extremity: COMMON NORMALS: normal to inspection, capillary refill normal, no clubbing, cyanosis or edema, no calf tenderness and no pedal edema Neuro: SENSORIUM/ORIENTATION: Yes oriented to person, Yes oriented to place and Yes oriented to time Skin: COMMON NORMALS: no rashes or lesions noted GENERAL SKIN EXAM: no rashes or lesions noted Course Vital Signs: Vital signs: Vital Signs Temperature 97.7 F 08/09/20 15:30 Pulse Rate 81 08/09/20 19:58 Respiratory Rate 17 08/09/20 19:58 Blood Pressure 114/71 08/09/20 19:58 Pulse Oximetry 100 08/09/20 19:58 MDM - Chest Pain MDM Narrative: Medical decision making narrative: CTA of the chest is pending as well as a second troponin. Care turned over to Dr. Hunt at change of shift please see his notes for final diagnosis and disposition. Lab Data: Labs: Lab Results 08/09/20 08/09/20 08/09/20 Range/Units 16:11 16:11 16:11 WBC 11.0 H (4.0-10.0) 10^3/ uL RBC 4.64 (4.1-5.3) 10^6/u L Hgb 14.5 (11.7-16.6) g/dL Hct 42.7 (42.0-52.0) % MCV 92.0 (80-94) fL MCH 31.3 (28.0-34.0) pg MCHC 34.0 (30.0-36.0) g/dL RDW 13.5 (12.1-15.1) % Plt Count 276 (130-400) 10^3/c mm MPV 10.2 (7.4-10.4) fL Neut % (Auto) 75.9 % Lymph % (Auto) 15.7 % Stanley % (Auto) 5.6 % Eos % (Auto) 1.7 % Baso % (Auto) 0.5 % Neut # (Auto) 8.34 H (1.8-7.7) 10^3/u L Lymph # (Auto) 1.7 (0.8-4.8) 10^3/u L Stanley # (Auto) 0.6 (0.2-0.9) 10^3/u L Eos # (Auto) 0.2 (0.0-0.8) 10^3/u L Baso # (Auto) 0.1 (0.0-0.1) 10^3/u L Nucleated RBC % (a uto) 0 % Nucleated RBCs # 0.0 /100WBC Sodium 135 L (136-145) mmol/L Potassium 3.9 (3.5-5.1) mmol/L Chloride 99 (98-107) mmol/L Carbon Dioxide 27 (22-29) mmol/L Anion Gap 12.9 (5-19) BUN 12 (6-20) mg/dL Creatinine 0.9 (0.7-1.2) mg/dL GFR Calculation 89.0 L (90-130) mL/min Glucose 116 H (65-115) mg/dL Calculated Osmolal ity 281 L (285-295) mOsm/k g Calcium 8.6 (8.5-10.5) mg/dL Total Bilirubin 0.9 (0.15-1.2) mg/dL AST 91 H (0-40) U/L ALT 31 (0-41) U/L Alkaline Phosphata se 294 H (40-130) IU/L Troponin T Baselin e 7 (0-15) ng/L Troponin T 120 Min [place] (0-15) ng/L Delta Troponin T (0-10) ABS# Total Protein 7.1 (6.6-8.7) g/dL Albumin 3.7 (3.5-5.2) g/dL Globulin 3.4 (1.3-4.6) g/dL 08/09/20 Range/Units 18:14 WBC (4.0-10.0) 10^3/ uL RBC (4.1-5.3) 10^6/u L Hgb (11.7-16.6) g/dL Hct (42.0-52.0) % MCV (80-94) fL MCH (28.0-34.0) pg MCHC (30.0-36.0) g/dL RDW (12.1-15.1) % Plt Count (130-400) 10^3/c mm MPV (7.4-10.4) fL Neut % (Auto) % Lymph % (Auto) % Stanley % (Auto) % Eos % (Auto) % Baso % (Auto) % Neut # (Auto) (1.8-7.7) 10^3/u L Lymph # (Auto) (0.8-4.8) 10^3/u L Stanley # (Auto) (0.2-0.9) 10^3/u L Eos # (Auto) (0.0-0.8) 10^3/u L Baso # (Auto) (0.0-0.1) 10^3/u L Nucleated RBC % (a uto) % Nucleated RBCs # /100WBC Sodium (136-145) mmol/L Potassium (3.5-5.1) mmol/L Chloride (98-107) mmol/L Carbon Dioxide (22-29) mmol/L Anion Gap (5-19) BUN (6-20) mg/dL Creatinine (0.7-1.2) mg/dL GFR Calculation (90-130) mL/min Glucose (65-115) mg/dL Calculated Osmolal ity (285-295) mOsm/k g Calcium (8.5-10.5) mg/dL Total Bilirubin (0.15-1.2) mg/dL AST (0-40) U/L ALT (0-41) U/L Alkaline Phosphata se (40-130) IU/L Troponin T Baselin e (0-15) ng/L Troponin T 120 Min [place] 6.32 (0-15) ng/L Delta Troponin T -0.68 L (0-10) ABS# Total Protein (6.6-8.7) g/dL Albumin (3.5-5.2) g/dL Globulin (1.3-4.6) g/dL Discharge Plan Discharge Patient Disposition: Home Clinical Impression: Chest pain Qualifiers: Chest pain type: unspecified Qualified Code(s): R07.9 - Chest pain, unspecified Condition: Stable Prescriptions: New Protonix 40 mg tablet,delayed release (DR/EC) 40 mg PO DAILY Qty: 60 RF: 0 No Action ondansetron HCl [Zofran] 4 mg tablet 4 mg PO Q6H PRN (Reason: nausea and vomiting) Qty: 20 RF: 0 hydrocodone-acetaminophen 5-325 mg tablet 1 tab PO Q6H PRN (Reason: pain) Qty: 20 RF: 0 levofloxacin 750 mg tablet 750 mg PO DAILY 5 Days RF: 0 metronidazole [Flagyl] 500 mg tablet 500 mg PO Q8H 5 Days Qty: 15 RF: 0 Senna with Docusate Sodium 8.6-50 mg tablet 1 tab-cap PO BID RF: 0 Discharge Orders: Discharge ED (Routine); Ordered 08/09/20 Ordered By: Carmella Hunt Referrals: Ricki Daly MD [Physician] - 1-3 days Ivanna Henson PA [Primary Care Provider] - Discharge Diet: Advance as tolerated Discharge Activity: Resume usual activity Patient Instructions: Opioid Safety Coding Level of Care Code ED Waiter/Waitress Room Service for Chg Fwd Exam Comprehensive Documented by User: Carmella Hunt MD 08/09/20 20:13 HPI - Chest Pain General: Chief Complaint: Chest Pain Stated Complaint: chest pain Time Seen by Provider: 08/09/20 18:08 PFSH ED PFSH: Medical History [place]-vesical fistula Diverticulitis History of colon polyps Follow-up colonoscopy in 2024 UTI (urinary tract infection) Surgical History H/O partial cystectomy (08/02/20) Hx of arthroscopy of left knee Status post colonoscopy with polypectomy 05/20/2019: Descending colon: 5 mm sessile polyp removed with cold biopsy forceps Sigmoid colon: Moderate diverticulosis Rectum: Internal hemorrhoids Status post laparoscopic-assisted sigmoidectomy (08/02/20) Family History Mother Diabetes Other Cancer Family hx of colon cancer Social History Smoking and tobacco status: never smoked Alcohol intake: never Household members: spouse Marital status: Current occupational status: employed History of recent travel: No Course Vital Signs: Vital signs: Vital Signs Temperature 97.7 F 08/09/20 15:30 Pulse Rate 81 08/09/20 19:58 Respiratory Rate 17 08/09/20 19:58 Blood Pressure 114/71 08/09/20 19:58 Pulse Oximetry 100 08/09/20 19:58 MDM - Chest Pain MDM Narrative: Medical decision making narrative: Addy presents here with chest pain symptoms consistent with possible GERD. His initial repeat troponin here negative. His CT showed no acute abnormalities. Patient did have some slight air likely from his recent surgery. We will start him on Protonix. He is to return if worsening. He understands agrees to plan. He has follow-up with Dr. Daly on Sunday and is to follow-up then. Lab Data: Labs: Lab Results 08/09/20 08/09/20 08/09/20 Range/Units 16:11 16:11 16:11 WBC 11.0 H (4.0-10.0) 10^3/ uL RBC 4.64 (4.1-5.3) 10^6/u L Hgb 14.5 (11.7-16.6) g/dL Hct 42.7 (42.0-52.0) % MCV 92.0 (80-94) fL MCH 31.3 (28.0-34.0) pg MCHC 34.0 (30.0-36.0) g/dL RDW 13.5 (12.1-15.1) % Plt Count 276 (130-400) 10^3/c mm MPV 10.2 (7.4-10.4) fL Neut % (Auto) 75.9 % Lymph % (Auto) 15.7 % Stanley % (Auto) 5.6 % Eos % (Auto) 1.7 % Baso % (Auto) 0.5 % Neut # (Auto) 8.34 H (1.8-7.7) 10^3/u L Lymph # (Auto) 1.7 (0.8-4.8) 10^3/u L Stanley # (Auto) 0.6 (0.2-0.9) 10^3/u L Eos # (Auto) 0.2 (0.0-0.8) 10^3/u L Baso # (Auto) 0.1 (0.0-0.1) 10^3/u L Nucleated RBC % (a uto) 0 % Nucleated RBCs # 0.0 /100WBC Sodium 135 L (136-145) mmol/L Potassium 3.9 (3.5-5.1) mmol/L Chloride 99 (98-107) mmol/L Carbon Dioxide 27 (22-29) mmol/L Anion Gap 12.9 (5-19) BUN 12 (6-20) mg/dL Creatinine 0.9 (0.7-1.2) mg/dL GFR Calculation 89.0 L (90-130) mL/min Glucose 116 H (65-115) mg/dL Calculated Osmolal ity 281 L (285-295) mOsm/k g Calcium 8.6 (8.5-10.5) mg/dL Total Bilirubin 0.9 (0.15-1.2) mg/dL AST 91 H (0-40) U/L ALT 31 (0-41) U/L Alkaline Phosphata se 294 H (40-130) IU/L Troponin T Baselin e 7 (0-15) ng/L Troponin T 120 Min [place] (0-15) ng/L Delta Troponin T (0-10) ABS# Total Protein 7.1 (6.6-8.7) g/dL Albumin 3.7 (3.5-5.2) g/dL Globulin 3.4 (1.3-4.6) g/dL 08/09/20 Range/Units 18:14 WBC (4.0-10.0) 10^3/ uL RBC (4.1-5.3) 10^6/u L Hgb (11.7-16.6) g/dL Hct (42.0-52.0) % MCV (80-94) fL MCH (28.0-34.0) pg MCHC (30.0-36.0) g/dL RDW (12.1-15.1) % Plt Count (130-400) 10^3/c mm MPV (7.4-10.4) fL Neut % (Auto) % Lymph % (Auto) % Stanley % (Auto) % Eos % (Auto) % Baso % (Auto) % Neut # (Auto) (1.8-7.7) 10^3/u L Lymph # (Auto) (0.8-4.8) 10^3/u L Stanley # (Auto) (0.2-0.9) 10^3/u L Eos # (Auto) (0.0-0.8) 10^3/u L Baso # (Auto) (0.0-0.1) 10^3/u L Nucleated RBC % (a uto) % Nucleated RBCs # /100WBC Sodium (136-145) mmol/L Potassium (3.5-5.1) mmol/L Chloride (98-107) mmol/L Carbon Dioxide (22-29) mmol/L Anion Gap (5-19) BUN (6-20) mg/dL Creatinine (0.7-1.2) mg/dL GFR Calculation (90-130) mL/min Glucose (65-115) mg/dL Calculated Osmolal ity (285-295) mOsm/k g Calcium (8.5-10.5) mg/dL Total Bilirubin (0.15-1.2) mg/dL AST (0-40) U/L ALT (0-41) U/L Alkaline Phosphata se (40-130) IU/L Troponin T Baselin e (0-15) ng/L Troponin T 120 Min [place] 6.32 (0-15) ng/L Delta Troponin T -0.68 L (0-10) ABS# Total Protein (6.6-8.7) g/dL Albumin (3.5-5.2) g/dL Globulin (1.3-4.6) g/dL Imaging Data^: CT Chest: Radiologist's impression: [address] [address] [address] Scan Report Signed Patient: Addy Bashir Unit #: [id number] : 1970 Age/Sex: 49 / M ADM Date: 08/09/20 Loc: ER Room/Bed: Attending Dr: Ordering Provider/Ordering MD: Preston Love DO Date of Service: 08/09/20 Procedure(s): CT angio chest PE protcl 02607 Accession Number(s): [id number] Report Number: [id number] PROCEDURE INFORMATION: Exam: CTA Chest With Contrast Exam date and time: 08/09/2020 6:15 PM Age: 49 years old Clinical indication: Chest pain; Patient HX: Sigmoid resection x 1week; Additional info: Chest pain/post op TECHNIQUE: Imaging protocol: Computed tomographic angiography of the chest with contrast. 3D rendering (Not supervised by radiologist): MIP and/or 3D reconstructed images were created by the technologist. Radiation optimization: All CT scans at this facility use at least one of these dose optimization techniques: automated exposure control; mA and/or kV adjustment per patient size (includes targeted exams where dose is matched to clinical indication); or iterative reconstruction. Contrast material: OMNI 350; Contrast volume: 75 ml; Contrast route: INTRAVENOUS (IV); COMPARISON: CR XR chest 1V portable [id number] 08/09/2020 3:44 PM RADIATION DOSE METRICS: Total DLP (mGy-cm): 617.12 FINDINGS: Pulmonary arteries: Pulmonary arteries are well opacified. Pulmonary arteries are normal in caliber. No filling defects are demonstrated. No evidence of pulmonary embolism. Aorta: Mild atherosclerosis of the aortic arch. No aortic aneurysm or dissection. Lungs: Mild dependent atelectasis at the lung bases. No consolidative infiltrates. Pleural spaces: Unremarkable. No pneumothorax. No pleural effusion. Heart: No cardiomegaly. No pericardial effusion. Lymph nodes: Unremarkable. No enlarged lymph nodes. Gallbladder and bile ducts: Calcified gallstone in the dependent portion of the gallbladder. Intraperitoneal space: Minimal pneumoperitoneum demonstrated in the upper abdomen. Bones/joints: Mild degenerative spine changes are noted. No acute osseous abnormality. Soft tissues: The soft tissues appear unremarkable. CT/CT angio chest PE protcl [id number] IMPRESSION: 1. Minimal pneumoperitoneum demonstrated in the upper abdomen. This is likely related to the history of recent resection of the sigmoid colon. 2. Pulmonary arteries appear unremarkable. No evidence of pulmonary embolism. 3. No evidence of thoracic aortic aneurysm or dissection. 4. Mild dependent atelectasis at the lung bases. No consolidative infiltrates. 5. Calcified gallstone in the dependent portion of the gallbladder. EKG Data^: EKG 2: Attestation: I personally reviewed and interpreted this EKG as follows: EKG interpretation date: 08/09/20 EKG interpretation time: 18:13 Interpretation: nsr hr [address] or t wave abnormalities qrs 87 qtc 405 Discharge Plan Discharge Patient Disposition: Home Clinical Impression: Chest pain Qualifiers: Chest pain type: unspecified Qualified Code(s): R07.9 - Chest pain, unspecified Condition: Stable Prescriptions: New Protonix 40 mg tablet,delayed release (DR/EC) 40 mg PO DAILY Qty: 60 RF: 0 No Action ondansetron HCl [Zofran] 4 mg tablet 4 mg PO Q6H PRN (Reason: nausea and vomiting) Qty: 20 RF: 0 hydrocodone-acetaminophen 5-325 mg tablet 1 tab PO Q6H PRN (Reason: pain) Qty: 20 RF: 0 levofloxacin 750 mg tablet 750 mg PO DAILY 5 Days RF: 0 metronidazole [Flagyl] 500 mg tablet 500 mg PO Q8H 5 Days Qty: 15 RF: 0 Senna with Docusate Sodium 8.6-50 mg tablet 1 tab-cap PO BID RF: 0 Discharge Orders: Discharge ED (Routine); Ordered 08/09/20 Ordered By: Carmella Hunt Referrals: Ricki Daly MD [Physician] - 1-3 days Ivanna Henson PA [Primary Care Provider] - Discharge Diet: Advance as tolerated Discharge Activity: Resume usual activity Patient Instructions: Opioid Safety Coding Level of Care Code ED Waiter/Waitress Room Service for Chg Fwd Exam Comprehensive
--- NOTE | 2020-08-09 15:38 | XRR_ITS ---
PROCEDURE INFORMATION: Exam: XR Chest Exam date and time: 08/09/2020 3:47 PM Age: 49 years old Clinical indication: Chest pain; Type not specified; Prior surgery; Surgery type: Sigmoid, resection 1 week ago TECHNIQUE: Imaging protocol: XR of the chest Views: 1 view. COMPARISON: No relevant prior studies available. FINDINGS: Lungs: No consolidative pulmonary infiltrates are noted. Pleural spaces: Unremarkable. No pleural effusion. No pneumothorax. Heart/Mediastinum: No cardiomegaly. Vasculature: The thoracic aorta is mildly atherosclerotic. Bones/joints: Mild degenerative thoracic spine changes. XR/XR chest 1V portable [id number] IMPRESSION: No acute abnormality demonstrated.
[2020-08-09 16:22] LABS: Basophils # 0.1 10^3/uL (0.0-0.1); Basophils % 0.5 %; Eosinophils # 0.2 10^3/uL (0.0-0.8); Eosinophils % 1.7 %; Hematocrit 42.7 % (42.0-52.0); Hemoglobin 14.5 g/dL (11.7-16.6); Lymphocytes # 1.7 10^3/uL (0.8-4.8); Lymphocytes % 15.7 %; Mean Corpuscular Hemoglobin 31.3 pg (28.0-34.0); Mean Platelet Volume 10.2 fL (7.4-10.4); Monocytes # 0.6 10^3/uL (0.2-0.9); Monocytes % 5.6 %; Neutrophils # 8.34 10^3/uL (1.8-7.7); Neutrophils % 75.9 %; Nucleated Red Blood Cells % 0 %; Platelet Count 276 10^3/cmm (130-400); Red Blood Count 4.64 10^6/uL (4.1-5.3); Red Cell Distribution Width 13.5 % (12.1-15.1)
[2020-08-09] MEDS: sodium chloride 0.9% 1,000 ML 999 ML IV (16:31)
[2020-08-09 16:54] LABS: Troponin(5th) Baseline 7 ng/L (0-15)
[2020-08-09 16:55] LABS: Alanine Aminotransferase 31 U/L (0-41); Albumin Level 3.7 g/dL (3.5-5.2); Alkaline Phosphatase 294 IU/L (40-130); Anion Gap 12.9 (5-19); Aspartate Amino Transferase 91 U/L (0-40); Blood Urea Nitrogen 12 mg/dL (6-20); Calcium 8.6 mg/dL (8.5-10.5); Carbon Dioxide 27 mmol/L (22-29); Chloride 99 mmol/L (98-107); Globulin 3.4 g/dL (1.3-4.6); Glucose 116 mg/dL (65-115); Osmolality Calculated 281 mOsm/kg (285-295); Potassium 3.9 mmol/L (3.5-5.1); Sodium 135 mmol/L (136-145); Total Bilirubin 0.9 mg/dL (0.15-1.2); Total Protein 7.1 g/dL (6.6-8.7)
[2020-08-09 17:17] VITALS: BP 134/80; PULSE 81; RESP 21; O2SAT 97
[2020-08-09 17:35] VITALS: BP 134/76; PULSE 80; RESP 18; O2SAT 98
--- NOTE | 2020-08-09 17:38 | ECG_ITS ---
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 Measurements Intervals [place] Rate: 73 P: 55 [place]: 164 QRS: -26 QRSD: 87 T: 12 QT: 379 QTc: 419 Interpretive Statements SINUS RHYTHM WITH OCCASIONAL VENTRICULAR PREMATURE COMPLEXES BORDERLINE LEFT AXIS DEVIATION [QRS AXIS < -20] POSSIBLE RIGHT VENTRICULAR CONDUCTION DELAY [RSR (QR) IN V1/V2] Compared to ECG 08/09/2020 15:33:03 Ventricular premature complex(es) now present Electronically Signed On 08-10-2020 1:15:31 CDT by Giovany Bravo M.D. [id number]
--- NOTE | 2020-08-09 17:52 | CTR_ITS ---
PROCEDURE INFORMATION: Exam: CTA Chest With Contrast Exam date and time: 08/09/2020 6:15 PM Age: 49 years old Clinical indication: Chest pain; Patient HX: Sigmoid resection x 1week; Additional info: Chest pain/post op TECHNIQUE: Imaging protocol: Computed tomographic angiography of the chest with contrast. 3D rendering (Not supervised by radiologist): MIP and/or 3D reconstructed images were created by the technologist. Radiation optimization: All CT scans at this facility use at least one of these dose optimization techniques: automated exposure control; mA and/or kV adjustment per patient size (includes targeted exams where dose is matched to clinical indication); or iterative reconstruction. Contrast material: OMNI 350; Contrast volume: 75 ml; Contrast route: INTRAVENOUS (IV); COMPARISON: CR XR chest 1V portable [id number] 08/09/2020 3:44 PM RADIATION DOSE METRICS: Total DLP (mGy-cm): 617.12 FINDINGS: Pulmonary arteries: Pulmonary arteries are well opacified. Pulmonary arteries are normal in caliber. No filling defects are demonstrated. No evidence of pulmonary embolism. Aorta: Mild atherosclerosis of the aortic arch. No aortic aneurysm or dissection. Lungs: Mild dependent atelectasis at the lung bases. No consolidative infiltrates. Pleural spaces: Unremarkable. No pneumothorax. No pleural effusion. Heart: No cardiomegaly. No pericardial effusion. Lymph nodes: Unremarkable. No enlarged lymph nodes. Gallbladder and bile ducts: Calcified gallstone in the dependent portion of the gallbladder. Intraperitoneal space: Minimal pneumoperitoneum demonstrated in the upper abdomen. Bones/joints: Mild degenerative spine changes are noted. No acute osseous abnormality. Soft tissues: The soft tissues appear unremarkable. CT/CT angio chest PE protcl [id number] IMPRESSION: 1. Minimal pneumoperitoneum demonstrated in the upper abdomen. This is likely related to the history of recent resection of the sigmoid colon. 2. Pulmonary arteries appear unremarkable. No evidence of pulmonary embolism. 3. No evidence of thoracic aortic aneurysm or dissection. 4. Mild dependent atelectasis at the lung bases. No consolidative infiltrates. 5. Calcified gallstone in the dependent portion of the gallbladder. Radiation Dose CTDIVOL = (mGy): DLP = 617.12 (mGy-cm)
[2020-08-09 18:03] VITALS: RESP 20
[2020-08-09] MEDS: morphine 4 mg/mL SDV 1 mL 2 MG IVP (18:03)
[2020-08-09] MEDS: iohexol 350 mg/mL 100 mL Btl IV (18:31)
[2020-08-09 18:53] LABS: Troponin 5 2HR 6.32 ng/L (0-15)
[2020-08-09 19:15] LABS: Troponin 5 2HR Delta -0.68 ABS# (0-10)
[2020-08-09 19:35] VITALS: PULSE 82; O2SAT 99
[2020-08-09 19:58] VITALS: BP 114/71; PULSE 81; RESP 17; O2SAT 100
== END 2020-08-09 19:58 | disposition home or self-care (01) ==
PROVIDERS: Family Medicine; Emergency Provider Emergency Medicine; PCP Physician Assistant
DX: R07.9 Chest pain, unspecified (principal)
CPT/HCPCS: 71045; 71275; 80053; 84484; 85025; 93005; 96361; 96374; 99284; J2270; J7030; Q9967

== ENCOUNTER 2022-09-15 05:09 | Emergency (ER) | payer BC, SELFPAY ==
[2022-09-15 05:17] VITALS: BP 161/109; PULSE 91; RESP 16; TEMP 36.6; O2SAT 96; BMI 35.2
[2022-09-15 05:22] VITALS: BP 140/91; PULSE 81; RESP 17; O2SAT 98
[2022-09-15] MEDS: tetracaine 0.5% Op Soln 4 mL Btl 1 DROP EYE-LEFT (05:37)
[2022-09-15] MEDS: fluorescein 1 mg Strip EYE-LEFT (05:37)
[2022-09-15] MEDS: eye irrigation 30 mL Btl EYE-LEFT (05:44)
--- NOTE | 2022-09-15 05:49 | W.ED.EYEPROB ---
HPI - Eye Problem General: Chief complaint: Eye Problems Stated complaint: swollen left eye Time Seen by Provider: 09/15/22 05:16 Source: patient Mode of arrival: ambulatory History of Present Illness: 51-year-old male who presents emergency room with complaints of bilateral redness in the eye. Began yesterday he thought he had a foreign body in the left eye. Like he had an eyelash. It seemed to go away but his left eye began swelling and becoming reddened and inflamed. He put some drops in his eye overnight that he had at home this morning when he woke up both eyes are red and inflamed but the left is worse than the right he has not had any visual losses. No direct trauma to the eye. MD chief complaint: eye pain, eye redness and eye injury Onset (ago): day(s) (1) Duration: constant Location: both eyes Eye Symptoms: burning, redness, pain and foreign body sensation Place: home Severity: moderate If Pain, Quality: burning Associated symptoms: Denies cough, fever(s), headache(s), neck pain, numbness, rhinorrhea, short of breath or weakness Review of Systems Const: Denies: fever(s), chills, fatigue or malaise Eyes: Reports: eye discomfort and eye redness ENMT: Denies: throat pain, ear or mastoid pain, nasal discharge or nasal congestion Card: Denies: chest pain Resp: Denies: dyspnea GI: Denies: abdominal pain Musc: Denies: neck pain Skin/Breast: Denies: rash or pruritus Neuro: Denies: headache(s) PFS ED PFSH: Medical History [place]-vesical fistula Diverticulitis History of colon polyps Follow-up colonoscopy in 2024 UTI (urinary tract infection) Surgical History H/O partial cystectomy (08/02/20) Hx of arthroscopy of left knee Status post colonoscopy with polypectomy 05/20/2019: Descending colon: 5 mm sessile polyp removed with cold biopsy forceps Sigmoid colon: Moderate diverticulosis Rectum: Internal hemorrhoids Status post laparoscopic-assisted sigmoidectomy (08/02/20) Family History Mother Diabetes Other Cancer Family hx of colon cancer Social History Smoking and tobacco status: never smoked Alcohol intake: never Substance/Drug Use: never Household members: spouse Marital status: Current occupational status: employed Physical Exam Const: GENERAL APPEARANCE: cooperative ORIENTATION/CONSCIOUSNESS: Yes awake, Yes oriented to person, Yes oriented to place and Yes oriented to time HENMT: COMMON NORMALS: normocephalic, atraumatic and hearing grossly normal bilaterally HEAD & SCALP: normocephalic and atraumatic Eye: OTHER: Eyes bilaterally red and inflamed left greater than right the eyelids upper and lower on the left are more swollen there is no crusting at the edge of the lids. Conjunctiva is inflamed and swollen with mild chemosis bilaterally the left worse than the right again. Tetracaine applied to the eyes bilaterally and fluorescein applied there is a linear corneal abrasion on the lower third of the left cornea and is not involving the central part of the cornea. It appears to be partially healed. With eversion of the eyelids there is no evidence of retained foreign bodies. Resp: COMMON NORMALS: normal respiratory effort, No retractions, No use of accessory muscles and clear to auscultation bilaterally AUSCULTATION: clear to auscultation bilaterally Cardio: COMMON NORMALS: regular rate, regular rhythm and No murmurs present (Cardio) RATE: regular rate RHYTHM: regular rhythm Neuro: SENSORIUM/ORIENTATION: Yes oriented to person, Yes oriented to place and Yes oriented to time Skin: COMMON NORMALS: no rashes or lesions noted GENERAL SKIN EXAM: no rashes or lesions noted Course Vital Signs: Vital signs: Vital Signs Temperature 97.8 F 09/15/22 05:17 Pulse Rate 81 09/15/22 05:22 Respiratory Rate 17 09/15/22 05:22 Blood Pressure 140/91 09/15/22 05:22 Pulse Oximetry 98 09/15/22 05:22 Oxygen Delivery Me thod Room Air 09/15/22 05:22 MDM - Eye Problem Medical Decision Making Corneal abrasion bilateral conjunctivitis. After the fluorescein dye was applied it was rinsed out with normal saline patient tolerated well discharged home to start on TobraDex drops 1 drop 4 times a day in each eye. We will have case management make arrangements for follow-up with ophthalmology. Return if has worsening problems. His tetanus is up-to-date his last tetanus was in 2019. Medical Records I reviewed the patient's medical records. Lab Data I reviewed the patient's lab results. Discharge Plan Discharge Patient Disposition: Home Clinical Impression: Corneal abrasion, Bacterial conjunctivitis Condition: Stable Prescriptions: New TobraDex 0.3-0.1 % drops,suspension 1 drp ophthalmic (eye) QID 7 Days Qty: 5 0RF Rx Instructions: 1 drop each eye 4 times daily for 7 days No Action amoxicillin 500 mg capsule 500 mg PO Q12H 10 Days Qty: 20 0RF methylprednisolone [Medrol (Mauricio)] 4 mg tablets,dose pack See Rx Instructions PO PER PKG DIR Qty: 21 0RF Rx Instructions: PO PER PKG DIR Discharge Orders: Discharge ED (Routine); Ordered 09/15/22 Ordered By: Preston Love Referrals: Ivanna Henson PA [Primary Care Provider] - Discharge Diet: Usual diet Discharge Activity: Resume usual activity Patient Instructions: Corneal Abrasion (ED), Conjunctivitis (ED), Opioid Safety, Pain Management Activity Restrictions/Additional Instructions: You are seen in the emergency room for redness in the eye. On exam you are found to have an abrasion to the left cornea that appears to be partially healed there is redness and signs of infection bilaterally in the eyes. Recommend use the eyedrops 1 drop in each eye 4 times a day Case management will make arrangements for follow-up with Dr. Ramírez's office early next week. Coding Level of Care Code ED Infection Control Practitioner for [facility]
[2022-09-15 05:59] VITALS: BP 140/91; PULSE 85; RESP 17; O2SAT 96
--- NOTE | 2022-09-15 12:42 | PC.NURSE ---
Patient seen in the Ed on 09/15/22. Referral for Dr. Ramírez needed. [facility] sent referral to clinic. Will follow up to make sure they received referral.
== END 2022-09-15 06:00 | disposition home or self-care (01) ==
PROVIDERS: Emergency Provider Family Medicine; PCP Physician Assistant
DX: S05.02XA Injury of conjunctiva and corneal abrasion without foreign body, left eye, initial encounter (principal); X58.XXXA Exposure to other specified factors, initial encounter; H10.89 Other conjunctivitis
CPT/HCPCS: 99283